=== PATIENT | female | born 1940 | race Caucasian/White ===

== ENCOUNTER 2016-10-13 17:01 | Outpatient (CLI) | payer OTHER, BC ==
--- NOTE | 2016-10-13 18:33 | DIAGNOSTIC IMAGING REPORT ---
PROCEDURE: ABDOMEN/PELVIS WITH CONTRAST CLINICAL INDICATION: LLQ PAIN TECHNIQUE: 125 ml of Isovue 300 were injected intravenously and axial images were obtained of the abdomen and pelvis with sagittal and coronal reformations. COMPARISON: None. FINDINGS: ABDOMEN: Small strandy interstitial opacity at both lung bases, right more extensive than left. Normal sized heart. No hiatal hernia. A few tiny hepatic cystic structures are too small to accurately characterize. There are four gallstones layering dependently in the gallbladder fundus measuring approximately 6-7 mm. Mild bilateral renal atrophy with multiple parapelvic cysts. Normal adrenal glands, spleen, pancreas, stomach, upper bowel loops, mesentery, and retroperitoneal vessel caliber. Mild aortic atherosclerosis. PELVIS: There is extensive diverticulosis of the sigmoid colon without acute inflammatory changes. Two calcified appendicoliths are seen in either short appendix or appendiceal stump. The uterus is present in the fundus is slightly enlarged for the patient's age secondary to a heterogeneously hyperenhancing 2.6 x 2.1 x 1.9 cm mass in the posterior aspect of the fundus. Pelvic small bowel loops, decompressed urinary bladder, and pelvic vessels are normal. No adenopathy or free fluid. Osseous structures demonstrate mild to moderate compression fractures of T12 and L1 which appear chronic. 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 IMPRESSION: 1. Sigmoid diverticulosis without acute diverticulitis. 2. Slightly enlarged uterus for age containing a 2.6 cm enhancing fundal mass. While this is most likely a uterine fibroid, neoplastic change cannot be excluded. Recommend pelvic ultrasound and/or pelvic MRI. 3. Two appendicoliths without surrounding inflammation. 4. Cholelithiasis. 5. Strandy dense atelectatic changes at the lung bases right greater than left. 6. Mild to moderate T12 and L1 compression fractures. Ankylosis of the right sacroiliac joint. 7. Discussed with Sendy Beltran in the Urgent Care clinic. All CT scans at this facility use dose modulation, iterative reconstruction, and/or weight-based dosing when appropriate to reduce radiation dose to as low as reasonably achievable.
== END 2016-10-13 23:00 | disposition home or self-care (01) ==
LOC: CT SRH 17:01
DX: K57.32 Diverticulitis of large intestine without perforation or abscess without bleeding (principal); R93.5 Abnormal findings on diagnostic imaging of other abdominal regions, including retroperitoneum; J98.11 Atelectasis; K35.2 Acute appendicitis with generalized peritonitis; M24.651 Ankylosis, right hip

== ENCOUNTER 2016-10-19 09:44 | Outpatient (CLI) | payer OTHER, BC ==
--- NOTE | 2016-10-19 10:45 | DIAGNOSTIC IMAGING REPORT ---
PROCEDURE: US COMPLETE PELVIC W/TRANSVAG INDICATION: PELVIC PAIN TECHNIQUE: Transabdominal and endovaginal curry scale and color Doppler sonographic images of the female pelvis were obtained. COMPARISON: Abdominal CT dated 10/13/2016 FINDINGS: TRANSABDOMINAL SCANS: The uterus is of normal size 6.7 x 3.1 x 4.7 cm Kidneys not well seen. TRANSVAGINAL SCANS: The uterus is anteverted. There is a a 3.2 x 2.3 x 2.6 cm fibroid that is posterior and fundal. The endometrium measures 1.6 mm. Ovaries were not visualized. IMPRESSION: 1. Posterior and fundal uterine fibroid measuring 3.2 x 2.3 x 2.6 cm
== END 2016-10-19 23:00 ==
LOC: US SRH 09:44
DX: D25.9 Leiomyoma of uterus, unspecified (principal)